=== PATIENT | female | born 1955 | race Caucasian/White ===

== ENCOUNTER → 2016-09-24 | Outpatient (CLI) | payer OTHER, MEDICAID | LOC: BRMIMAGING 09:44 | PROVIDERS: ATTEND Physician Assistant Medical | DX: M85.80 Other specified disorders of bone density and structure, unspecified site (principal); M81.0 Age-related osteoporosis without current pathological fracture; Z78.0 Asymptomatic menopausal state; Z82.62 Family history of osteoporosis ==

== ENCOUNTER → 2017-01-23 | Outpatient (CLI) | payer OTHER, MEDICAID | LOC: CIMAGING 11:05 | PROVIDERS: ATTEND Family Medicine | DX: J18.1 Lobar pneumonia, unspecified organism (principal) | CPT/HCPCS: 71020-PO ==

== ENCOUNTER → 2018-02-06 | Outpatient (CLI) | payer OTHER | LOC: FIMAGING 08:27 | PROVIDERS: ATTEND Orthopaedic Surgery | DX: R93.6 Abnormal findings on diagnostic imaging of limbs (principal) | CPT/HCPCS: 78315; 78805; A9503; A9570 ==

== ENCOUNTER → 2018-08-15 | Outpatient (CLI) | payer OTHER | LOC: EMCIMAGING 09:19 ==